=== PATIENT | male | born 1985 | race American Indian/Alaskan Native ===

== ENCOUNTER 2017-10-08 16:15 | Emergency (ER) | payer SELFPAY ==
[~2017-10-08] VITALS: Ht 177.8 cm; Wt 60.8 kg
[2017-10-08] MEDS ORDERED: IBUPROFEN 600 MG TAB PO ONE ×2 (16:57→17:45)
[2017-10-08 18:12] LABS: Basophils # (auto) 0.1 uL; Eosinophils # (auto) 0.3 uL; Hemoglobin 13.9 g/dL (13.5-17.5)
[2017-10-08 18:14] LABS: Basophils % (auto) 0.9 % (0.0-2.0); Eosinophils % (auto) 1.6 % (0.0-7.0); Hematocrit 41.2 % (41.0-53.0); Lymphocytes # (auto) 1.6 uL; Lymphocytes % (auto) 10.6 % (10.0-50.0); Mean Corpuscular Hgb Conc. 33.8 g/dL (32.0-36.0); Mean Corpuscular Volume 85.8 fL (80.0-100.0); Monocytes # (auto) 1.7 uL; Monocytes % (auto) 11.3 % (0.0-12.0); Neutrophils # (auto) 11.7 uL; Neutrophils % (auto) 75.6 % (37.0-80.0); Platelet Count (auto) 620 10^3/uL (140-450); Red Blood Cells 4.81 10^6/uL (4.5-5.90); White Blood Cell 15.5 10^3/uL (4.4-10.8)
[2017-10-08 18:29] LABS: Albumin 3.5 g/dL (3.4-5.0); BUN/Creatinine Ratio 8.6; Bilirubin, Total 0.3 mg/dL (0.2-1.0); Calcium 9.2 mg/dL (8.5-10.1); Potassium 3.9 mmol/L (3.5-5.1)
[2017-10-08] MEDS ORDERED: LEVOFLOXACIN 500MG 100 ML IV ONE (20:00)
[2017-10-08] MEDS ORDERED: IOHEXOL 350 MG/ML 100ML IJ ONE (22:43)
[2017-10-09 03:12] VITALS: BP 124/80
== END 2017-10-09 03:15 | disposition home or self-care (01) ==
LOC: ER 16:31
DX: R59.1 Generalized enlarged lymph nodes (principal)
CPT/HCPCS: 36415; 71046; 71260; 80053; 83605; 85025; 87040; 94761; 96365; 99285; J1956; Q9967